=== PATIENT | female | born 2000 | race Asian ===

== ENCOUNTER 2024-08-06 17:50 | Emergency (ER) | payer OTHER ==
[~2024-08-06] VITALS: Ht 160 cm; Wt 70.3 kg
[2024-08-06 17:50] VITALS: BP_SYST 147; PULSE 70; RESP 18; TEMP 98.7; O2SAT 100
[2024-08-06] MEDS: OXYCODONE/ACETAMINOPHEN 5-325 TABLET PO ONE (19:12)
[2024-08-06 20:41] VITALS: BP_SYST 126; PULSE 82; RESP 18; TEMP 98.2; O2SAT 98
== END 2024-08-06 20:41 | disposition home or self-care (01) ==
LOC: SED 17:50
DX: S20.212A Contusion of left front wall of thorax, initial encounter (principal); M25.562 Pain in left knee; R10.30 Lower abdominal pain, unspecified; M54.2 Cervicalgia; F12.90 Cannabis use, unspecified, uncomplicated; V89.2XXA Person injured in unspecified motor-vehicle accident, traffic, initial encounter; Y93.89 Activity, other specified; Y92.89 Other specified places as the place of occurrence of the external cause; Y99.8 Other external cause status
CPT/HCPCS: 71250-TC; 72125-TC; 73564; 81025; 99284